=== PATIENT | male | born 2000 ===

== ENCOUNTER 2021-01-26 08:00 | Outpatient (CLI) | payer MEDICAID ==
--- NOTE | 2021-01-26 16:31 | XRAY Report ---
PROCEDURE: Hand 3 View RT INDICATIONS: CONTUSION OF R HAND TECHNIQUE: 3 views of the hand(s) acquired. COMPARISON: None FINDINGS: Bones: No fractures or dislocations. No suspicious bony lesions. Soft tissues: No suspicious soft tissue calcifications. IMPRESSION: No acute fracture. No osseous lesion. If symptoms and/or clinical suspicion for pathology continue, f urther assessment with repeat plain films, or advanced imaging (e.g., CT, MRI, or bone scan) is recom mended for further assessment. Reviewed by: Ruperto Siegel MD on 01/26/2021 4:30 PM PDT Approved by: Ruperto Siegel MD on 01/26/2021 4:30 PM PDT Station ID: [id number]
== END 2021-01-26 23:59 | disposition home or self-care (01) ==
LOC: DI.N 08:00
PROVIDERS: ATTEND Physician Assistant Medical
DX: S60.221A Contusion of right hand, initial encounter (principal)